=== PATIENT | male | born 1990 | race African-American/Black ===

== ENCOUNTER 2018-09-08 15:40 | Emergency (ER) | payer OTHER ==
[2018-09-08] MEDS: IBUPROFEN 600 MG TAB PO (17:31)
== END 2018-09-08 19:33 | disposition home or self-care (01) ==
LOC: FTE 15:40
DX: S69.92XA Unspecified injury of left wrist, hand and finger(s), initial encounter (principal); K61.0 Anal abscess; W20.8XXA Other cause of strike by thrown, projected or falling object, initial encounter; Y92.9 Unspecified place or not applicable
CPT/HCPCS: 29125; 73110-LT; 99283-25